=== PATIENT | male | born 1955 | race Caucasian/White ===

== ENCOUNTER → 2019-08-23 | Outpatient (CLI) | payer OTHER ==
--- NOTE | 2019-08-23 16:18 | PCVCIMAG ---
APPROVED REPORT Study performed: 08/23/2019 15:04:20 Exam: Stress Echocardiogram Indication: Elevated CA Score, Hyperlipidemia, Hypertension Patient Location: Echo lab Stress Nurse: Yadira Owens RN Room #: 1 Status: routine Ht: 6 ft 0 in HR: 59 bpm BP: 124/76 mmHg Rhythm: NSR Procedure The patient underwent an Exercise Stress Test using the Tone Protocol. Blood pressure, heart rate, and EKG were monitored. An Echocardiogram was performed by hotel maintenance technician in four stages in quad fashion. At peak stress, four selected images were obtained and placed side by side with resting images for comparison. Stress Test Details Stress Test: Exercise stress testing was performed using a Tone protocol. HR Resting HR: 59 bpmMax Heart Rate (APMHR): 159 bpm Max HR Achieved: 162 bpmTarget HR (85% APMHR): 135 bpm % of APMHR: 101 Recovery HR: 87 bpm HR response to stress: Normal HR response to stress BP Resting BP: 124/76 mmHg Max BP: 208/98 mmHg Recovery BP: 168/84 mmHg BP response to stress: Normal blood pressure response to stress. ECG Resting ECG: Sinus Rhythm Stress ECG: Sinus Rhythm Recovery ECG: Sinus Rhythm Clinical Reason for Termination: Maximal effort Exercise duration: 11 min 07 sec Highest Stage Achieved: Stage 4: 4.2 mph at 16% grade. Exercise capacity: 13.70 METs Overall Exercise Capacity for Age: Excellent Stress ECG Conclusion ECG: Non-ischemic Clinical: Non-ischemic Pre-Stress Echo The resting Echocardiogram showed normal left ventricular contractility with an estimated Ejection Fraction of about >55%. Normal wall motion in all segments on baseline images. Post-Stress Echo The stress Echocardiogram showed normal left ventricular contractility with an estimated Ejection Fraction of about 60-65%. Normal augmentation of wall motion in all segments on post stress images. Clinical No clinical or ECG evidence for ischemia. Conclusion Clinical Response: Non-ischemic Exercise Capacity: Superior Stress ECG Response: Non-ischemic Stress Echo Images: Non-ischemic No clinical, EKG or echocardiographic evidence for ischemia. Normal stress echocardiogram with maximal exercise stress. Doppler and color flow demonstrate mild pulmonic insufficiency, trace aortic insufficiency and trrace tricuspid regurgitation. Pulmonary artery pressure is 29 mmHg. Other Information Study Quality: Good <Conclusion> No clinical, EKG or echocardiographic evidence for ischemia. Normal stress echocardiogram with maximal exercise stress. Doppler and color flow demonstrate mild pulmonic insufficiency, trace aortic insufficiency and trrace tricuspid regurgitation. Pulmonary artery pressure is 29 mmHg.
== END | disposition home or self-care (01) ==
LOC: PCVCIMAG 14:53
PROVIDERS: ATTEND Internal Medicine Cardiovascular Disease
DX: I37.1 Nonrheumatic pulmonary valve insufficiency (principal); I10 Essential (primary) hypertension; E78.00 Pure hypercholesterolemia, unspecified; Z72.89 Other problems related to lifestyle
CPT/HCPCS: 93325; 93351